=== PATIENT | male | born 1980 | race Caucasian/White ===

== ENCOUNTER → 2016-08-07 | Outpatient (CLI) | payer OTHER ==
[~2016-08-07] MED LIST: AMLO10TA4 PO; IOHEXOL 300 MG/ML 100ML VIAL. IV ONE; PROP80CA3 PO
--- NOTE | 2016-08-07 10:11 | KCIC ---
PROCEDURE Head CT angiogram with and without intravenous contrast; neck CT angiogram with intravenous contrast. HISTORY Polycystic kidney disease. Family history of aneurysm. TECHNIQUE Computed tomographic images of the head and neck were obtained following the administration of 95 cc Omnipaque 300 intravenous contrast. Precontrast images of the head were also obtained. Three-dimensional maximum intensity projection images were obtained. One or more of the following individualized dose reduction techniques were utilized for this examination: 1. Automated exposure control; 2. Adjustment of the mA and/or kV according to patient size; 3. Use of iterative reconstruction technique. COMPARISON None. FINDINGS There is a standard aortic arch branching pattern. The origins of the arch great vessels are widely patent. The right vertebral artery is dominant. The bilateral carotid and vertebral arteries are widely patent throughout their entire extent. The intracranial vessels are widely patent. No aneurysm is seen. There is a deep penetrating vessel or developmental venous anomaly within the left frontal lobe, of no clinical significance. There is no suspicious enhancing lesion. There is no mass effect or midline shift. The gary and white matter differentiation pattern is intact. There is no hemorrhage. The orbits are unremarkable. There are tiny inferior right maxillary sinus mucous retention cysts. The mastoid air cells are clear. The parotid and submandibular glands are unremarkable. There is a 4 mm hypodense lesion within the right thyroid lobe, likely benign based on size. There is no suspicious osseous lesion. There are mild degenerative changes within the cervical spine. There is no severe foraminal or central canal stenosis. IMPRESSION 1. No evidence of hemodynamically significant stenosis or aneurysm. 2. No acute intracranial finding. 3. 4 mm hypodense lesion within the right thyroid lobe, likely benign based on size. PQRS Statement: NASCET criteria were utilized for this exam. Electronically signed by: Yissel Huynh (Aug 07, 2016 10:09:18)
== END | disposition home or self-care (01) ==
LOC: KCIC CT 08:01
PROVIDERS: ATTEND Internal Medicine Nephrology
DX: Z82.49 Family history of ischemic heart disease and other diseases of the circulatory system (principal); Z82.71 Family history of polycystic kidney
CPT/HCPCS: 70496; 70498; 82565; Q9967